=== PATIENT | female | born 1940 | race African-American/Black ===

== ENCOUNTER 2017-11-06 13:30 | Emergency (ER) | payer MEDICARE ==
[~2017-11-06] VITALS: Ht 160 cm; Wt 79.0 kg
[2017-11-06 13:38] VITALS: BP 166/98; PULSE 87; RESP 19; TEMP 97.7; O2SAT 98
[2017-11-06] MEDS ORDERED: TETANUS/DIPHTHERIA TOXOID ADULT 0.5 ML VIAL IM ONE (14:00)
[2017-11-06] MEDS ORDERED: ACETAMINOPHEN/HYDROcodone 325 MG/5 MG TAB PO ONE (14:00)
--- NOTE | 2017-11-06 14:02 | PD ---
HPI Chief Complaint: Fall Time Seen by Provider: 13:44 Travel History International Travel<30 days: No Contact w/Intl Traveler<30days: No Traveled to known affect area: No History of Present Illness HPI Patient while she was shopping at the [employer] was stepping off the escalator when she had a mechanical trip and fall. Patient states she did not strike her head, no loss of consciousness, no period of confusion. But the patient did try to brace herself and had her left knee and left forearm and the back of her base of her neck are sore and have skin abrasions. Patient denies any symptoms of lightheadedness palpitations chest pain dizziness or any other presyncopal symptoms. Patient denies any associated factors such as fever, rash, headache, chest pain, back pain, abdominal pain, flank pain, nausea, vomiting, diarrhea, visual changes, sore throat/cough/runny nose. States allergy to penicillin her reaction is swelling of her lip Past medical history significant for neuropathy and hypertension PFSH Past Medical History Cardiovascular Problems: Yes (HTN) ?: Not Social History Tobacco Use: No Allergies-Medications (Allergen,Severity, Reaction): Coded Allergies: Penicillins (Verified Allergy, Intermediate, Swelling, 11/06/17) LIP SWELLING Reported Meds & Prescriptions Reported Meds & Active Scripts Active Ultram (Tramadol HCl) 50 Mg Tab 50 Mg PO Q6H PRN Reported Myrbetriq (Mirabegron) 25 Mg Tab 25 Mg PO DAILY Gabapentin 100 Mg Cap 100 Mg PO BID Losartan (Losartan Potassium) 100 Mg Tab 100 Mg PO DAILY Review of Systems General / Constitutional: No: Fever Eyes: No: Visual changes HENT: No: Headaches Cardiovascular: No: Chest Pain or Discomfort Respiratory: No: Shortness of Breath Gastrointestinal: No: Abdominal Pain Genitourinary: No: Dysuria Musculoskeletal: No: Pain Skin: Positive Other (Abrasions to her left forearm, left knee, neck) Neurologic: No: Weakness Psychiatric: No: Depression Endocrine: No: Polydipsia Hematologic/Lymphatic: No: Easy Bruising Physical Exam Narrative GENERAL: SKIN: Warm and dry. Patient had abrasions to her left forearm on the ulnar aspect, as well as her abrasion to her left infrapatellar region, and as well as the base of her neck near C7-T1 patient had an abrasion on that area of the skin. However patient had full range of motion of her neck turning left right flexion-extension without any midline tenderness to palpation. Patient was able to bEnd her left knee as well as her left forearm and elbow. HEAD: Atraumatic. Normocephalic. EYES: Pupils equal and round. No scleral icterus. No injection or drainage. ENT: No nasal bleeding or discharge. Mucous membranes pink and moist. NECK: Trachea midline. No JVD. CARDIOVASCULAR: Regular rate and rhythm. RESPIRATORY: No accessory muscle use. Clear to auscultation. Breath sounds equal bilaterally. GASTROINTESTINAL: Abdomen soft, non-tender, nondistended. Hepatic and splenic margins not palpable. MUSCULOSKELETAL: Extremities without clubbing, cyanosis, or edema. No obvious deformities. Left knee had a negative anterior and posterior drawer negative tenderness to palpation of her lateral or medial collateral ligaments. Additionally the patient's left elbow was able to have full range of motion's flexion extension without any difficulty. NEUROLOGICAL: Awake and alert. No obvious cranial nerve deficits. Motor grossly within normal limits. Five out of 5 muscle strength in the arms and legs. Normal speech. PSYCHIATRIC: Appropriate mood and affect; insight and judgment normal. Data Data Last Documented VS Vital Signs Date Time Temp Pulse Resp B/P (MAP) Pulse Ox O2 Delivery O2 Flow Rate FiO2 11/06/17 13:38 97.7 87 19 166/98 (120) 98 Orders Orders Forearm (2vws) (11/06/17 13:54) Knee, Ltd (1 Or 2vws) (11/06/17 13:54) Tetanus/Diphtheria Tox Adult (Tetanus/Di (11/06/17 14:00) Acetamin-Hydrocod 325-5 Mg ([place] 5-325 (11/06/17 14:00) Spine, Cervical Compl(Nnq0pth) (11/06/17 ) Ed Discharge Order (11/06/17 15:20) MDM Medical Decision Making Medical Screen Exam Complete: Yes Emergency Medical Condition: Yes Medical Record Reviewed: Yes Differential Diagnosis Contusion versus abrasion versus fracture versus dislocation versus subluxation Narrative Course Knee x-ray read by radiologist as no evidence of recent bony injury Forearm x-ray read as no evidence of recent bony injury C-spine read by radiologist as no evidence of compression deformity or spondylolisthesis, mild degenerative changes in the mid and lower cervical spine with mild neural foraminal stenosis as described above Diagnosis Primary Impression: Abrasion and contusions Additional Impression: Chronic c spine changes Patient Instructions: Abrasion (GEN), Contusion in Adults (ED), General Instructions Scripts Tramadol (Ultram) 50 Mg Tab 50 MG PO Q6H Y for PAIN, #12 TAB 0 Refills Prov: Shravan Sheppard MD 11/06/17 Disposition: 01 DISCHARGE HOME Condition: Stable Shravan Shpepard MD Nov 06, 2017 14:02
--- NOTE | 2017-11-06 14:45 | RADRPT ---
EXAM DATE: 11/06/2017 2:37 PM EDT AGE/SEX: 77 years / Female INDICATIONS: Fall, complains of left forearm pain. CLINICAL DATA: This is the patient's initial encounter. Patient reports that signs and symptoms have been present for 1 day and indicates a pain score of 6/10. MEDICAL/SURGICAL HISTORY: None. None. COMPARISON: No prior exams available for comparison. FINDINGS: Bony structures are intact and in normal alignment. Osseous density is normal. Soft tissues are unre markable. No radiopaque foreign bodies seen. CONCLUSION: No evidence of recent bony injury. Electronically signed by: Kirill Jarrett MD 11/06/2017 2:44 PM EDT
--- NOTE | 2017-11-06 14:45 | RADRPT ---
EXAM DATE: 11/06/2017 2:41 PM EDT AGE/SEX: 77 years / Female INDICATIONS: Fall CLINICAL DATA: This is the patient's initial encounter. Patient reports that signs and symptoms have been present for 1 day and indicates a pain score of 5/10. MEDICAL/SURGICAL HISTORY: None. None. COMPARISON: No prior exams available for comparison. FINDINGS: Bony structures are intact and in normal alignment. Joints are intact without dislocation or signifi cant arthropathy. Osseous density is normal. No distention of the suprapatellar soft tissues. No ra diopaque foreign bodies seen. CONCLUSION: No evidence of recent bony injury. Electronically signed by: Kirill Jarrett MD 11/06/2017 2:44 PM EDT
--- NOTE | 2017-11-06 14:47 | RADRPT ---
EXAM DATE: 11/06/2017 2:44 PM EDT AGE/SEX: 77 years / Female INDICATIONS: Fall CLINICAL DATA: This is the patient's initial encounter. Patient reports that signs and symptoms have been present for 1 day and indicates a pain score of 5/10. MEDICAL/SURGICAL HISTORY: None. None. COMPARISON: No prior exams available for comparison. FINDINGS: There is straightening of the cervical lordosis. Vertebral body height is maintained. The prevertebra l soft tissues are normal in thickness. Mild osteophyte formation C4-C6. On the oblique views, the [place] neural foramen remain patent on the left side and there is mild right-sided neural foraminal steno sis at C3-4, C4-5, and C6-7. The atlantoaxial articulation is intact. CONCLUSION: 1. No evidence of compression deformity or spondylolisthesis. 2. Mild degenerative changes in the mid and lower cervical spine with mild neural foraminal stenosis as described above. Electronically signed by: Kirill Jarrett MD 11/06/2017 2:46 PM EDT
[2017-11-06] MEDS ORDERED: MIRA25TA PO (15:12)
[2017-11-06] MEDS ORDERED: GABA100C4 PO (15:12)
[2017-11-06] MEDS ORDERED: LOSA100T PO (15:12)
[2017-11-06] MEDS ORDERED: TRAM50 PO (15:18)
== END 2017-11-06 16:01 | disposition home or self-care (01) ==
LOC: NEPC 13:30
DX: S80.02XA Contusion of left knee, initial encounter (principal); S50.12XA Contusion of left forearm, initial encounter; S10.83XA Contusion of other specified part of neck, initial encounter; I10 Essential (primary) hypertension; W10.0XXA Fall (on)(from) escalator, initial encounter; Y93.01 Activity, walking, marching and hiking; Z23 Encounter for immunization; Z88.0 Allergy status to penicillin
CPT/HCPCS: 72050; 73090; 73560; 90471; 90714